=== PATIENT | male | born 1935 | race Caucasian/White ===

== ENCOUNTER 2017-05-10 11:35 | Inpatient (IN) | payer MEDICARE ==
--- NOTE | ~2017-05-10 | DS ---
Discharge Summary [facility] [address] [place]. [address] NAME: CECILIO CARREON : 35 STATUS : DIS IN PAT#: [id number] AGE: 81 ADM/REG DATE : 05/10/17 MR#: [id number] REPORT SERV DATE: 05/24/17 DICTATED BY: JASKARAN MONTOYA DATE: 05/23/17 REPORT STATUS : Draft TRANSCRIBED BY: MICAH DATE: 05/23/17 Data Collection from hospitalization DISCHARGE DIAGNOSES: 1. Bilateral inguinal hernia. 2. Hypertension. 3. Hypercholesterolemia. 4. Arthritis. CONSULTATIONS: 1. Yaniv Acosta M.D., Ph.D, F.A.C.C. 2. Jhonatan Carreno M.D. PROCEDURES PERFORMED: 1. Pacemaker implantation on 05/12/2017. 2. CT scan of the abdomen and pelvis without contrast on 05/10/2017. MEDICATIONS: Aspirin 325 mg daily, Lipitor 20 mg at bedtime, Dulcolax 10 mg at bedtime, Voltaren 75 mg twice a day, Colace 300 mg at bedtime, Kensal 10/325 one tablet every six hours as needed, Prinivil 10 mg daily, multivitamin tablets one tablet daily, and Prilosec 20 mg daily. CONDITION AT DISCHARGE: Stable. DISPOSITION: The patient was discharged home on a clear liquid diet with activities as instructed. He would follow up with Dr. Yaniv Acosta on 06/24/2017. He would follow up with Dr. Brodie Nieves one month following discharge. He would follow up in the Pacer Clinic at the [facility] on 06/06/2017. HOSPITAL COURSE: This is an 81-year-old man who presented to the hospital with a chief complaint of abdominal pain. He has had some nausea and left inguinal bulge with inability to reduce a previously known hernia. He did have some improvement in his symptoms with pain medication since he got here. A CT scan revealed incarcerated left groin hernia with sigmoid colon and also right groin hernia, these are longstanding. His EKG revealed bradycardia with bundle-branch block. His blood pressure was found to be 170/61. White blood cell count was 11. He does have a small amount of leukocyte esterase on urinalysis, there were 13 white blood cells. His incarcerated hernia was reduced. It was felt that he would need repair of bilateral inguinal hernias. It was felt that he would need a cardiac evaluation to determine whether he may need a pacemaker or other treatment prior to surgical intervention as he does have bradycardia with presyncope. Antibiotics were started for urinary tract infection. He was admitted to the hospital at this time for further evaluation and treatment. Upon admission, he was seen by Dr. Yaniv Acosta regarding abdominal pain. He had been found to have a significant bradycardia in the emergency room with heart rates ranging in the 30s to 50s with left bundle-branch block. The patient had occasional rare chest discomfort, which is not typical for angina or typically exertional. He does have fairly frequent dizziness when he goes to stand up. He has had no dc syncope. He had mild Discharge Summary [address] [place]. [address] NAME: CECILIO CARREON : 35 STATUS : DIS IN PAT#: [id number] AGE: 81 ADM/REG DATE : 05/10/17 MR#: [id number] REPORT SERV DATE: 05/24/17 DICTATED BY: JASKARAN MONTOYA DATE: 05/23/17 REPORT STATUS : Draft TRANSCRIBED BY: MICAH DATE: 05/23/17 fatigue, but no palpitations. The patient was felt to have significant conduction disease with left bundle-branch block and variable second-degree type 1 AV block. He was going to be monitored over the next 24 hours that it was suspected that he may be a candidate for pacemaker and may benefit from this. He would be held n.p.o. The following day, he had no new complaints. He remained afebrile. He was seen in consultation by Dr. Jhonatan Carreno regarding high-grade AV block and consideration of pacemaker. He had demonstrated periods of 2:1 AV block associated with symptoms of dizziness and weakness. He had a baseline left bundle-branch block conduction pattern. He had no complaints of angina or dc syncope, orthopnea or PND. His nausea and abdominal pain had significantly improved with reduction of his hernia. He felt that we should plan to proceed with implantation of a dual-chamber rate responsive cardiac pacing system. The patient agreed to proceed. On 05/12/2017, he was taken to the electrophysiology laboratory where he underwent the above- mentioned procedure by Dr. Jhonatan Carreno. He tolerated this well, and there were no complications. Discharge planning was performed. The pacemaker was checked and all measurements were within normal limits. On 05/13/2017, his abdomen was soft. Echocardiogram was performed. Discharge instructions were given. Due to his improved and stable condition, he was discharged home with the above-stated instructions. Information collected by: Romina Ramos I submit the above information as my discharge summary. TG/MODL Jaskaran Montoya M.D. / [id number] CC: Daron Newby M.D. Gregory Keith Bruce, M.D. William Oellerich, M.D., Ph.D, F.A.C.C.
--- NOTE | ~2017-05-10 | CN ---
Consultation Report [facility] [address] [place]. [address] NAME: CECILIO CRENSHAW : 35 STATUS : ADM IN [facility]#: [id number] AGE: 81 ADM/REG DATE : 05/10/17 MR#: [id number] REPORT SERV DATE: 05/10/17 DICTATED BY: YANIV SETH DATE: 05/10/17 REPORT STATUS : Draft TRANSCRIBED BY: MODL DATE: 05/10/17 CARDIOLOGY CONSULTATION DATE OF CONSULTATION: CHIEF COMPLAINT: Abdominal pain. HISTORY OF PRESENT ILLNESS: Mr. Crenshaw is an 81-year-old man with a history of hypertension and hypercholesterolemia. He has had problems with hernias for several years that normally he has been able to reduce, but he came to the hospital with abdominal pain and nausea. He was found to have an incarcerated hernia that was reduced in the emergency room. He was also noted to have significant bradycardia in the emergency room with heart rates ranging in the 30s to 50s with a left bundle-branch block. He was admitted and consultation was requested. The patient has occasional rare chest discomfort, which is not typical for angina or typically exertional. He does have a fairly frequent dizziness when he goes to stand up. He has had no dc syncope. He has no palpitations, but does have some mild fatigue. He has no fevers or chills. No nausea, and his symptoms have improved after reduction of his hernia. He has occasional edema, which is mild independent. REVIEW OF SYSTEMS: The review of systems is as per the history of present illness. 10 other systems are negative. PAST MEDICAL HISTORY: 1. Hypertension. 2. Hypercholesterolemia. 3. Osteoarthritis. FAMILY HISTORY: Positive for coronary artery disease. SOCIAL HISTORY: No tobacco or alcohol is reported. ALLERGIES: NO KNOWN DRUG ALLERGIES. HOME MEDICATIONS: Aspirin 325 daily, Lipitor 20 at bedtime, Dulcolax, Voltaren, Colace, hydrocodone, lisinopril 10 daily, multivitamin, Prilosec. PHYSICAL EXAMINATION: VITAL SIGNS: Patient is afebrile. Heart rate is 50, blood pressure is 170/61. GENERAL: Patient is pleasant elderly white male, in no apparent distress. HEENT: Conjunctivae are anicteric, no xanthelasma, lips without cyanosis. NECK: Supple, normal JVP, carotids +2 without bruit. LUNGS: Clear to auscultation bilaterally, no wheezes, rales or rhonchi. CARDIOVASCULAR: Irregular with bradycardia. Normal S1 and S2. 1/6 to 2/6 systolic murmur. Consultation Report [facility] [address] [place]. [address] NAME: CECILIO CRENSHAW : 35 STATUS : ADM IN PAT#: [id number] AGE: 81 ADM/REG DATE : 05/10/17 MR#: [id number] REPORT SERV DATE: 05/10/17 DICTATED BY: YANIV SETH DATE: 05/10/17 REPORT STATUS : Draft TRANSCRIBED BY: MODBryan DATE: 05/10/17 ABDOMEN: Soft, nontender, nondistended, with normal bowel sounds. No hepatomegaly. EXTREMITIES: No clubbing, cyanosis or edema. NEURO/PSYCH: Alert and oriented to person, place and time. No obvious neurologic deficits. Mood and affect normal. DATA: EKGs shows sinus bradycardia, first-degree AV block with left bundle-branch block. Review of the strips from the emergency room show what appears to be episodic Wenckebach in the setting of left bundle-branch block. IMPRESSION: 1. Hernias, now reduced. 2. Significant conduction disease with left bundle-branch block and variable second-degree type 1 AV block. 3. Dizziness on standing. 4. Hypertension. 5. Hypercholesterolemia. RECOMMENDATIONS: Mr. Crenshaw presents with incarcerated hernias, but he does have significant conduction disease and probably does have mildly symptomatic bradycardia. I am going to monitor him over the next 24 hours here, but suspect in all likelihood, he may be candidate for pacemaker and may benefit from it. We will keep him n.p.o. and have my electrophysiology partner see him to evaluate him for pacemaker placement. Thank you for this consultation. Please contact me if you have any further questions. WO/MODL Yaniv Seth M.D., Ph.D, F.A.C.C. / [id number] CC: Daron Newby M.D.
--- NOTE | ~2017-05-10 | CN ---
Consultation Report [facility] [address] [place]. [address] NAME: CECILIO CRENSHAW : 35 STATUS : ADM IN [facility]#: [id number] AGE: 81 ADM/REG DATE : 05/10/17 MR#: [id number] REPORT SERV DATE: 05/12/17 DICTATED BY: JHONATAN CARRENO DATE: 05/12/17 REPORT STATUS : Draft TRANSCRIBED BY: MODL DATE: 05/12/17 ELECTROPHYSIOLOGY CONSULTATION DATE OF CONSULTATION: INDICATIONS: High-grade AV block, consideration of pacemaker. HISTORY OF PRESENT ILLNESS: Cecilio Crenshaw is an 81-year-old male who was admitted to the hospital on 05/10/2017 with an incarcerated hernia. This was reduced in the emergency room. He had abdominal pain and nausea. He had been admitted to Surgery Service with plans for surgery likely later this week. His past medical history is notable for hypertension, hypercholesterolemia. While here, he has demonstrated periods of 2:1 AV block associated with symptoms of dizziness and weakness. He had a baseline left bundle-branch block conduction pattern. No complaints of angina. No dc syncope. No orthopnea or PND. His nausea and abdominal pain have significantly improved with reduction of his hernia. FAMILY HISTORY: Notable for CAD. SOCIAL HISTORY: No alcohol or tobacco. ALLERGIES: NONE KNOWN. HOME MEDICATIONS: Aspirin, Lipitor, Dulcolax, Voltaren, Colace, hydrocodone, lisinopril, multivitamin, and Prilosec. REVIEW OF SYSTEMS: As per the HPI. Otherwise, all other review of systems negative. Telemetry demonstrates 2:1 AV block. ECG is sinus rhythm with second-degree AV block and a left bundle-branch block conduction pattern. PHYSICAL EXAMINATION: VITAL SIGNS: Blood pressure 131/60, pulse 59, respiratory rate 16, the patient is afebrile. GENERAL: Appears stated age, no distress. EYES: Sclerae anicteric, no arcus senilis. MOUTH: Oral mucosa moist, lips acyanotic. NECK: Jugular venous pressure normal, no carotid bruits. LUNGS: Clear to auscultation bilaterally, normal inspiratory effort. CARDIAC: Regular rate and rhythm, no murmurs, gallops or rubs. ABDOMEN: Soft, nondistended, nontender. EXTREMITIES: No edema. SKIN: Warm and dry. Consultation Report [facility] [address] [place]. [address] NAME: CECILIO CRENSHAW : 35 STATUS : ADM IN PAT#: [id number] AGE: 81 ADM/REG DATE : 05/10/17 MR#: [id number] REPORT SERV DATE: 05/12/17 DICTATED BY: JHONATAN CARRENO DATE: 05/12/17 REPORT STATUS : Draft TRANSCRIBED BY: MODL DATE: 05/12/17 NEURO/PSYCH: Alert and oriented, nonfocal, mood appropriate. DATA: From 05/10/2017, sodium 141, potassium 4.5, creatinine 0.8. Hemoglobin 14.3, white count 11, platelets 233. IMPRESSIONS: 1. Second-degree AV block.. 2. Incarcerated hernia. 3. History of hypertension. 4. Hyperlipidemia. RECOMMENDATIONS: Plan to proceed with implantation of a dual-chamber rate responsive cardiac pacing system today. I have discussed the rationale logistics and risk with the patient and his grandson. Risks include but not limited to bleeding, infection, vascular complications, failure to place lead, lead dislodgement, pneumothorax. I advised him that it would be myself or my partner Dr. Sands do the procedure later today. He voices understanding in agreement. All questions answered. GKB/MICAH Jhonatan Carreno M.D. / [id number] CC: Daron Newby M.D.
--- NOTE | ~2017-05-10 | HP ---
History And Physical [id number] [place]. [address] NAME: CECILIO CARREON : 35 STATUS : ADM IN [facility]#: [id number] AGE: 81 ADM/REG DATE : 05/10/17 MR#: [id number] REPORT SERV DATE: 05/10/17 DICTATED BY: NELSON CARLSON DATE: 05/10/17 REPORT STATUS : Draft TRANSCRIBED BY: MODL DATE: 05/10/17 DATE OF ADMISSION: 05/10/2017 CHIEF COMPLAINT: Abdominal pain. HISTORY: The patient presents with two-day history of abdominal pain with nausea and left inguinal bulge with inability to reduce a previously known hernia. He has some improvement in his symptoms with pain medications since he got here, and he underwent CT scan, which reveals incarcerated left groin hernia with sigmoid colon and also a right groin hernia. These are long-standing. MEDICATIONS: Lisinopril, atorvastatin,, diclofenac, and hydrocodone, which he takes for his painful knees. ALLERGIES: HE HAS NO KNOWN ALLERGIES. MEDICAL ILLNESSES: Include hypertension, hypercholesterolemia, and arthritis. PAST SURGICAL HISTORY: Previous surgeries include cholecystectomy, skin grafts, and a ganglion cyst removal. FAMILY HISTORY: Significant for heart disease. SOCIAL HISTORY: Negative for tobacco or ethanol abuse. REVIEW OF SYSTEMS: His comprehensive review of systems reveals problems with hearing. He denies psychiatric or neurologic problems. He has occasional mild chest pain and also some presyncope, but denies shortness of breath. He is on aspirin but has no other bleeding diathesis, or history of blood clots. He denies kidney problems. He has arthritis as mentioned and has some constipation but has not had any fever. He denies endocrine problems. The comprehensive review is otherwise negative. PHYSICAL EXAMINATION: VITAL SIGNS: His temperature is 36.5, pulse is in the 30s and 40s, respiratory rate 16. GENERAL: He is alert and well appearing. He has moist mucous membranes. No scleral icterus. NECK: There is no JVD, thyromegaly, or cervical adenopathy. LUNGS: There is no use of accessory muscles for breathing. HEART: Regular rhythm and bradycardic. ABDOMEN: Soft with mild tenderness in the left abdomen and also an incarcerated left groin hernia, which I could reduce with application of persistent pressure. I palpate no masses. EXTREMITIES: He has no cyanosis, clubbing, or edema. LABORATORY DATA: Additional data includes an EKG, which reveals bradycardia with bundle branch block. Please note his blood pressure is 170/61. His white blood cell count is 11, History And Physical [facility] [address] [place]. [address] NAME: CECILIO CARREON : 35 STATUS : ADM IN [facility]#: [id number] AGE: 81 ADM/REG DATE : 05/10/17 MR#: [id number] REPORT SERV DATE: 05/10/17 DICTATED BY: NELSON CARLSON DATE: 05/10/17 REPORT STATUS : Draft TRANSCRIBED BY: MODL DATE: 05/10/17 hemoglobin 14.3, creatinine 0.88. UA reveals 13 white blood cells. He has a small amount of leukocyte esterase. CT scan was independently reviewed and findings were consistent with hernia as noted. IMPRESSION AND PLAN: 1. Incarcerated hernia, this was reduced. He will need repair of bilateral inguinal hernias. 2. Bradycardia with presyncope, needs cardiac evaluation to determine whether he might need a pacemaker or other treatment prior to surgical intervention. 3. Urinary tract infection. He will be treated with antibiotics. TEDDY/MICAH Joseph Carlson M.D. / [id number] CC: Joseph Cardenas M.D.
[2017-05-10 11:16] LABS: BASOPHILS 0.3 %; BASOPHILS ABSOLUTE 0.03 10/3/uL (0.0-0.16); EOSINOPHILS 3.5 %; EOSINOPHILS ABSOLUTE 0.39 10/3/uL (0.0-0.53); ER CBC TAT 0 Hrs 03 Mins; HEMATOCRIT 41.6 % (40.0-51.0); HEMOGLOBIN 14.3 g/dL (13.6-17.8); IMMATURE GRANULOCYTES 0.2 %; IMMATURE GRANULOCYTES ABSOLUTE 0.02 10/3/uL (0.0-0.11); LYMPHOCYTES ABSOLUTE 1.88 10/3/uL (0.67-4.30); MEAN CORPUS HGB CONC 34.4 g/dL (32.0-36.0); MEAN CORPUSCULAR HEMOGLOB 31.5 pg (26.0-34.0); MEAN CORPUSCULAR VOLUME 91.6 fL (80-100); MEAN PLATELET VOLUME 10.6 fL (9.2-13.0); MONOCYTES 5.2 %; MONOCYTES ABSOLUTE 0.57 10/3/uL (0.21-1.20); NEUTROPHILS 73.8 %; NEUTROPHILS ABSOLUTE 8.14 10/3/uL (2.02-8.40); PLATELET COUNT 233 10/3/uL (150-400); RBC DISTRIBUTION WIDTH 13.1 % (12.0-16.0); RED CELL COUNT 4.54 10/6/uL (4.7-6.1)
[2017-05-10 11:17] LABS: MANUAL DIFF NO %
[2017-05-10 11:32] LABS: A/G RATIO 1.2 (0.7-1.9); ALBUMIN 3.7 G/DL (3.5-5.0); ALKALINE PHOSPHATASE 69 U/L (45-117); BUN (BLOOD UREA NITROGEN) 17 MG/DL (6-23); CALCIUM, SERUM 8.7 MG/DL (8.5-10.4); CHLORIDE, SERUM 110 MMOL/L (96-112); CO2 (CARBON DIOXIDE) 26 MMOL/L (24-34); CREATININE 0.88 MG/DL (0.70-1.30); GFR AFRICAN AMERICAN 93 ML/MIN (>=60); GFR NON AFRICAN AMERICAN 81 ML/MIN (>=60); GLOBULIN 3.2 G/DL (2.5-4.1); GLUCOSE, SERUM 97 MG/DL (60-99); SGPT(ALT) 31 U/L (5-65); SODIUM, SERUM 141 MMOL/L (135-148); TOTAL BILIRUBIN 1.1 MG/DL (0-1.2); TOTAL PROTEIN 6.9 G/DL (6.0-8.5)
[2017-05-10 11:33] LABS: POTASSIUM, SERUM 4.5 MMOL/L (3.5-5.3); SGOT(AST) 25 U/L (5-40)
[~2017-05-10 11:35] MED LIST: C1 PO; DOCUSOFT S100 MG PO; IRON325 MG PO; JANTOVEN2.5 MG PO; LACT30UDL PO; LEVAQUIN750 MG PO; LIPITOR20 PO; MULTIPLE VIT; MULTIPLE VIT PO; NORCO1 TAB PO; NORV5 PO; PCET PO; PRILO PO; PRIN10 PO; THERA M PLUS PO; VOLT75; VOLT75 PO; X5 PO; ZESTRIL10 MG PO
[2017-05-10 11:38] LABS: ASCORBIC ACID (UR NOT ORDER) NEG (NEG); BILIRUBIN, URINE NEGATIVE (NEG); ER URINALYSIS TAT 0 Hrs 21 Mins; KETONE, URINE NEGATIVE (NEG); LEUKOCYTE ESTERASE(NOT OR SMALL (NEG); NITRITE (URINE) NEG (NEG); WBC (NOT ORDERED) (RFLEX) 13 (0-5)
[2017-05-10 12:22] LABS: PARTIAL THROMBO TIME 29.4 SEC (22.5-37.2)
[2017-05-10 12:25] LABS: PROTIME (NOT ORD) 12.9 SEC (12.0-14.5)
[2017-05-10] MEDS ORDERED: PRIN10 PO (12:33)
[2017-05-10] MEDS ORDERED: LIPITOR20 PO (12:34)
[2017-05-10] MEDS ORDERED: VOLT75 PO (12:34)
[2017-05-10] MEDS ORDERED: NORCO1 TAB PO (12:35)
[2017-05-10] MEDS ORDERED: THERGRANM PO (12:48)
[2017-05-10] MEDS ORDERED: PRILOSEC OTC20 MG PO (12:48)
[2017-05-10] MEDS ORDERED: ASA5GR PO (12:48)
[2017-05-10] MEDS ORDERED: BIST PO (12:49)
[2017-05-10] MEDS ORDERED: DSS PO (12:49)
[2017-05-12 12:43] LABS: BASOPHILS 0.3 %; BASOPHILS ABSOLUTE 0.02 10/3/uL (0.0-0.16); EOSINOPHILS 6.4 %; EOSINOPHILS ABSOLUTE 0.43 10/3/uL (0.0-0.53); HEMATOCRIT 37.8 % (40.0-51.0); HEMOGLOBIN 12.7 g/dL (13.6-17.8); IMMATURE GRANULOCYTES 0.1 %; IMMATURE GRANULOCYTES ABSOLUTE 0.01 10/3/uL (0.0-0.11); LYMPHOCYTES ABSOLUTE 1.67 10/3/uL (0.67-4.30); MANUAL DIFF NO %; MEAN CORPUS HGB CONC 33.6 g/dL (32.0-36.0); MEAN CORPUSCULAR HEMOGLOB 31.4 pg (26.0-34.0); MEAN CORPUSCULAR VOLUME 93.6 fL (80-100); MEAN PLATELET VOLUME 10.5 fL (9.2-13.0); MONOCYTES 4.9 %; MONOCYTES ABSOLUTE 0.33 10/3/uL (0.21-1.20); NEUTROPHILS 63.3 %; NEUTROPHILS ABSOLUTE 4.21 10/3/uL (2.02-8.40); PLATELET COUNT 225 10/3/uL (150-400); RBC DISTRIBUTION WIDTH 12.9 % (12.0-16.0); RED CELL COUNT 4.04 10/6/uL (4.7-6.1); WHITE BLOOD CELLS 6.7 10/3/uL (4.5-10.5)
[2017-05-12 12:54] LABS: PROTIME (NOT ORD) 13.4 SEC (12.0-14.5)
[2017-05-12 12:57] LABS: BUN (BLOOD UREA NITROGEN) 19 MG/DL (6-23); CALCIUM, SERUM 8.7 MG/DL (8.5-10.4); CHLORIDE, SERUM 111 MMOL/L (96-112); CO2 (CARBON DIOXIDE) 28 MMOL/L (24-34); CREATININE 1.37 MG/DL (0.70-1.30); GFR AFRICAN AMERICAN 56 ML/MIN (>=60); GFR NON AFRICAN AMERICAN 48 ML/MIN (>=60); GLUCOSE, SERUM 88 MG/DL (60-99); POTASSIUM, SERUM 4.5 MMOL/L (3.5-5.3); SODIUM, SERUM 144 MMOL/L (135-148)
[2017-07-01] MEDS ORDERED: LIPITOR40 PO (10:25)
[2017-07-01] MEDS ORDERED: JANTOVEN5 MG (10:26)
== END 2017-05-13 12:46 | disposition home or self-care (01) | DRG 242 ==
LOC: ER 11:35 → 2SO 13:45
PROVIDERS: Emergency Medicine; Internal Medicine Cardiovascular Disease
PROC: 0JH606Z Insertion of Pacemaker, Dual Chamber into Chest Subcutaneous Tissue and Fascia, Open Approach (ICD-10-PCS; principal; 2017-05-12)
PROC: 02HK3JZ Insertion of Pacemaker Lead into Right Ventricle, Percutaneous Approach (ICD-10-PCS; 2017-05-12)
PROC: 02H63JZ Insertion of Pacemaker Lead into Right Atrium, Percutaneous Approach (ICD-10-PCS; 2017-05-12)
DX: I44.1 Atrioventricular block, second degree (principal); K41.40 Unilateral femoral hernia, with gangrene, not specified as recurrent; N39.0 Urinary tract infection, site not specified; I44.7 Left bundle-branch block, unspecified; K40.31 Unilateral inguinal hernia, with obstruction, without gangrene, recurrent; E78.5 Hyperlipidemia, unspecified; R00.1 Bradycardia, unspecified; I10 Essential (primary) hypertension; R91.1 Solitary pulmonary nodule; E78.00 Pure hypercholesterolemia, unspecified; M19.90 Unspecified osteoarthritis, unspecified site; Z98.890 Other specified postprocedural states
CPT/HCPCS: 33208; 71010; 74176; 80048; 80053; 81001; 83690; 85025; 85610; 85730; 87077; 87086; 87186; 93005; 96374; 96375; 99285; A9270-GY; C1769; C1785; C1892; C1898; C8929; J0690; J1170; J2405; J3010; P9045; Q9957; Q9967

== ENCOUNTER 2017-05-19 10:37 | Observation (INO) | payer MEDICARE ==
--- NOTE | ~2017-05-19 | PRECARD ---
H&P [facility] [address] [place]. [address] NAME: CECILIO CRENSHAW : 35 STATUS : ADM David PAT#: [id number] AGE: 81 ADM/REG DATE : 05/19/17 MR#: [id number] REPORT SERV DATE: 05/19/17 DICTATED BY: JIMMY WILSON DATE: 05/19/17 REPORT STATUS : Draft TRANSCRIBED BY: MODL DATE: 05/19/17 DATE OF ADMISSION: 05/19/2017 The referring physician is Dr. Montalvo in the emergency room. The primary powerhouse attendant is Dr. Acosta and Dr. Carreno. CHIEF COMPLAINT: Chest pain and dizziness, status post pacemaker placement on 05/12/2017, by Dr. Carreno. REASON FOR ADMISSION: Same. SOURCE: Patient and chart. HISTORY OF PRESENT ILLNESS: Mr. Crenshaw is a very pleasant, 81-year-old, Lat man, who had a pacemaker placed for high-grade AV block on 05/12/2017, by Dr. Carreno. He had an echocardiogram prior to discharge on the . Since then he did well last night when he started developing chest pain and shortness of breath, this got worse this morning, up to 10/10 in severity, described as substernal, radiating to the back and arms, associated with shortness of breath and nausea but no vomiting or diaphoresis. It has gotten a little bit better. It is now about 5/10 in severity but has been going on for many hours at this point. It is worse with taking a deep breath. He has not had any palpitations. He has had some dizziness but no syncope or loss of consciousness. No fever or chills. Blood pressure has been low. REVIEW OF SYSTEMS: All other systems are negative. ALLERGIES: NO KNOWN DRUG ALLERGIES. MEDICATIONS: Are not yet available but prior to his last admission, include aspirin; Lipitor; Dulcolax; Voltaren; Colace; hydrocodone; lisinopril; multivitamin; and Prilosec. CARDIAC RISK FACTORS: Hypertension, cholesterol, former tobacco. Denies diabetes or family history. SOCIAL HISTORY: The patient lives in [place]. He is . He has two living children who were adopted but alive and well. He is retired. FAMILY HISTORY: Mother of congestive heart failure at 94. Father of myocardial infarction at age 81. Brother had coronary artery bypass grafting at age 69. PAST MEDICAL HISTORY: Significant for high-grade AV block, status post pacemaker placement by Dr. Carreno on 05/12/2017. Heart murmur. Rheumatoid arthritis. Status post left hip surgery. Both knees are "worn out" and need surgery. Status post gallbladder surgery. Status post ganglion cyst. Status post cataract surgery. Hernia, has not yet had surgery. H&P PRE [address] [address] NAME: CECILIO CRENSHAW : 35 STATUS : ADM David PAT#: [id number] AGE: 81 ADM/REG DATE : 05/19/17 MR#: [id number] REPORT SERV DATE: 05/19/17 DICTATED BY: JIMMY WILSON DATE: 05/19/17 REPORT STATUS : Draft TRANSCRIBED BY: MICAH DATE: 05/19/17 He has had yates on his hands, requiring surgery. PHYSICAL EXAMINATION: GENERAL: He is a chronically ill-appearing, elderly, Lat man, in no acute distress. VITAL SIGNS: Blood pressure 101/53, pulse 80, temperature 97.4, height is 173 cm, weight is 77 kilos. He had orthostatic vital signs, blood pressure 138/57, pulse 84 lying; sitting 132/57, pulse 85; in standing 118/53, pulse 89. HEENT: Sclerae anicteric. Lips without cyanosis. NECK: Carotids 2+ and symmetrical. No bruits. No JVD. No thyromegaly. LUNGS: Rales at both bases. No use of accessory muscles. HEART: Regular rate and rhythm without murmur, gallop, or rub. CHEST: Healing pacer site left infraclavicular area. No hematoma or crepitance or bleeding. ABDOMEN: Positive bowel sounds. Soft, nontender. EXTREMITIES: Pulses 2+ and symmetrical. No cyanosis, clubbing, or edema. BACK: No CVA tenderness. MUSCULOSKELETAL: Good tone. NEUROLOGIC: Alert and oriented x3. Diminished auditory acuity and diminished fund of information. DATA: EKG reveals dual-chamber pacemaker with atrial sensing and ventricular pacing. He had a pacer check which was "okay" per [employer]. He had laboratory examination including chest x-ray, PA and lateral, in the ER which revealed stable cardiomegaly, pacemaker minimal, nonspecific left costophrenic angle atelectasis. BNP level of 88. The sodium 139, potassium 5.0, chloride of 106, CO2 of 29, glucose 129, BUN 25, creatinine 1.42. Troponin of less than 0.02. The white count is 12.3, hemoglobin 12.4, hematocrit 37.2, and platelets 191,000. INR 1.1. PTT of 29. Urine culture on May 10 was positive for E. coli, greater than 100,000. IMPRESSION: 1. Pleuritic chest pain, possibly due to recent pacemaker. 2. Orthostatic hypotension. 3. Status post pacemaker placement on 05/12/2017, by Dr. Carreno. 4. Hypertension, currently under good, if not over control. 5. Hyperlipidemia. 6. Former tobacco. 7. History of arthritis. 8. LVEF of 35% by echocardiogram last week following his pacemaker placement which represents a decline from 2014, uncertain time course. Consider the possibility of cardiomyopathy. 9. Acute kidney injury on chronic kidney disease. 10.UTI last week. RECOMMENDATIONS: 1. Admit to telemetry. 2. Check serial EKGs and enzymes. 3. Complete database. 4. Cautious IV saline 500 mL bolus then discontinue. 5. CT scan of the chest has already been done, results are pending. H&P [address] [address] NAME: CECILIO CRENSHAW : 35 STATUS : ADM David PAT#: [id number] AGE: 81 ADM/REG DATE : 05/19/17 MR#: [id number] REPORT SERV DATE: 05/19/17 DICTATED BY: JIMMY WILSON DATE: 05/19/17 REPORT STATUS : Draft TRANSCRIBED BY: MICAH DATE: 05/19/17 6. Obtain home medication list. 7. Consider further evaluation of diminished left ventricular systolic function. 8. Watch creatinine. FRANKLIN/MICAH Jimmy Wilson M.D. / [id number] CC: Jimmy Wilson M.D.
[2017-05-19 09:59] LABS: BASOPHILS 0.2 %; BASOPHILS ABSOLUTE 0.02 10/3/uL (0.0-0.16); EOSINOPHILS 2.9 %; EOSINOPHILS ABSOLUTE 0.36 10/3/uL (0.0-0.53); HEMATOCRIT 37.2 % (40.0-51.0); HEMOGLOBIN 12.4 g/dL (13.6-17.8); IMMATURE GRANULOCYTES 0.2 %; IMMATURE GRANULOCYTES ABSOLUTE 0.03 10/3/uL (0.0-0.11); LYMPHOCYTES 10.4 %; LYMPHOCYTES ABSOLUTE 1.28 10/3/uL (0.67-4.30); MEAN CORPUS HGB CONC 33.3 g/dL (32.0-36.0); MEAN CORPUSCULAR HEMOGLOB 31.2 pg (26.0-34.0); MEAN CORPUSCULAR VOLUME 93.5 fL (80-100); MONOCYTES 7.8 %; MONOCYTES ABSOLUTE 0.96 10/3/uL (0.21-1.20); NEUTROPHILS 78.5 %; NEUTROPHILS ABSOLUTE 9.66 10/3/uL (2.02-8.40); PLATELET COUNT 191 10/3/uL (150-400); RBC DISTRIBUTION WIDTH 13.2 % (12.0-16.0); RED CELL COUNT 3.98 10/6/uL (4.7-6.1)
[2017-05-19 10:01] LABS: MANUAL DIFF NO %; WHITE BLOOD CELLS 12.3 10/3/uL (4.5-10.5)
[2017-05-19 10:06] LABS: INTERNATIONAL NORMAL RATI 1.1 UNITS (-); PROTIME (NOT ORD) 14.5 SEC (12.0-14.5)
[2017-05-19 10:15] LABS: CALCIUM, SERUM 8.6 MG/DL (8.5-10.4); CHEST PAIN PROFILE TAT 0 Hrs 18 Mins; CHLORIDE, SERUM 106 MMOL/L (96-112); CO2 (CARBON DIOXIDE) 29 MMOL/L (24-34); CREATININE 1.42 MG/DL (0.70-1.30); GFR AFRICAN AMERICAN 53 ML/MIN (>=60); GFR NON AFRICAN AMERICAN 46 ML/MIN (>=60); SODIUM, SERUM 139 MMOL/L (135-148); TROPONIN I <0.02 NG/ML (<0.05)
[2017-05-19 10:17] LABS: BUN (BLOOD UREA NITROGEN) 25 MG/DL (6-23); GLUCOSE, SERUM 129 MG/DL (60-99)
[~2017-05-19 10:37] MED LIST changes: +ASA5GR PO; +BIST PO; +DSS PO; +PRILOSEC OTC20 MG PO; +THERGRANM PO
[2017-05-19 17:38] LABS: TROPONIN I <0.02 NG/ML (<0.05)
[2017-05-19 20:28] LABS: PROCALCITONIN 0.78 ng/mL (<0.5)
[2017-05-19 21:44] LABS: ASCORBIC ACID (UR NOT ORDER) NEG (NEG); BILIRUBIN, URINE NEGATIVE (NEG); KETONE, URINE NEGATIVE (NEG); LEUKOCYTE ESTERASE(NOT OR NEG (NEG); WBC (NOT ORDERED) (RFLEX) 1 (0-5)
[2017-05-20 06:06] LABS: BASOPHILS 0.3 %; BASOPHILS ABSOLUTE 0.03 10/3/uL (0.0-0.16); EOSINOPHILS 0.8 %; EOSINOPHILS ABSOLUTE 0.09 10/3/uL (0.0-0.53); HEMATOCRIT 34.4 % (40.0-51.0); HEMOGLOBIN 11.6 g/dL (13.6-17.8); IMMATURE GRANULOCYTES 0.2 %; IMMATURE GRANULOCYTES ABSOLUTE 0.02 10/3/uL (0.0-0.11); LYMPHOCYTES 14.7 %; LYMPHOCYTES ABSOLUTE 1.64 10/3/uL (0.67-4.30); MEAN CORPUS HGB CONC 33.7 g/dL (32.0-36.0); MEAN CORPUSCULAR HEMOGLOB 31.7 pg (26.0-34.0); MEAN PLATELET VOLUME 10.3 fL (9.2-13.0); MONOCYTES 8.2 %; MONOCYTES ABSOLUTE 0.91 10/3/uL (0.21-1.20); NEUTROPHILS 75.8 %; NEUTROPHILS ABSOLUTE 8.45 10/3/uL (2.02-8.40); PLATELET COUNT 211 10/3/uL (150-400); RBC DISTRIBUTION WIDTH 13.1 % (12.0-16.0); RED CELL COUNT 3.66 10/6/uL (4.7-6.1); WHITE BLOOD CELLS 11.1 10/3/uL (4.5-10.5)
[2017-05-20 06:09] LABS: MANUAL DIFF NO %
[2017-05-20 06:26] LABS: BUN (BLOOD UREA NITROGEN) 21 MG/DL (6-23); CALCIUM, SERUM 8.6 MG/DL (8.5-10.4); CHLORIDE, SERUM 109 MMOL/L (96-112); CO2 (CARBON DIOXIDE) 28 MMOL/L (24-34); CREATININE 1.05 MG/DL (0.70-1.30); FREE T4 1.32 NG/DL (0.76-1.46); GFR AFRICAN AMERICAN 77 ML/MIN (>=60); GFR NON AFRICAN AMERICAN 66 ML/MIN (>=60); GLUCOSE, SERUM 104 MG/DL (60-99); POTASSIUM, SERUM 4.3 MMOL/L (3.5-5.3); SODIUM, SERUM 141 MMOL/L (135-148); TROPONIN I <0.02 NG/ML (<0.05)
[2017-07-01] MEDS ORDERED: LIPITOR40 PO (10:25)
[2017-07-01] MEDS ORDERED: JANTOVEN5 MG (10:26)
== END 2017-05-20 18:17 | disposition home or self-care (01) ==
LOC: ER 10:37 → CDU1 18:41 → CDU2 19:35
PROVIDERS: Emergency Medicine; Hospitalist; Nurse Practitioner Family
DX: R07.81 Pleurodynia (principal); I95.1 Orthostatic hypotension; E78.5 Hyperlipidemia, unspecified; N18.9 Chronic kidney disease, unspecified; I12.9 Hypertensive chronic kidney disease with stage 1 through stage 4 chronic kidney disease, or unspecified chronic kidney disease; N17.9 Acute kidney failure, unspecified; K21.9 Gastro-esophageal reflux disease without esophagitis; D63.1 Anemia in chronic kidney disease; E78.00 Pure hypercholesterolemia, unspecified; M06.9 Rheumatoid arthritis, unspecified; M19.90 Unspecified osteoarthritis, unspecified site; Z90.49 Acquired absence of other specified parts of digestive tract; Z79.899 Other long term (current) drug therapy; Z87.891 Personal history of nicotine dependence; Z87.440 Personal history of urinary (tract) infections; Z87.442 Personal history of urinary calculi; Z98.890 Other specified postprocedural states
CPT/HCPCS: 71020; 71275; 78452; 80048; 81001; 83036; 83735; 83880; 84145; 84439; 84443; 84484; 85025; 85610; 85730; 93005; 93017; 96374; 99285; A9270-GY; A9502; G0378; J0153; Q9967